=== PATIENT | male | born 1995 | race Caucasian/White ===

== ENCOUNTER 2022-07-01 10:01 | Emergency (ER) | payer BC, MEDICAID ==
[2022-07-01] MEDS ORDERED: Lidocaine 1% 20 ML MDV INFILT ONE (10:02)
== END 2022-07-01 11:45 ==
LOC: FB.ED 10:01
DX: S61.215A Laceration without foreign body of left ring finger without damage to nail, initial encounter (principal); W25.XXXA Contact with sharp glass, initial encounter
CPT/HCPCS: 12001; 73140-F3; 99284